=== PATIENT | female | born 1995 ===

== ENCOUNTER 2021-04-27 06:53 | Day surgery (SDC) | payer OTHER | END 2021-04-27 11:05 | disposition home or self-care (01) | LOC: AMB-ENDOS 06:53 | PROVIDERS: ATTEND Surgery | DX: K29.60 Other gastritis without bleeding (principal); K44.9 Diaphragmatic hernia without obstruction or gangrene; E66.01 Morbid (severe) obesity due to excess calories; K76.0 Fatty (change of) liver, not elsewhere classified; E11.9 Type 2 diabetes mellitus without complications; M79.7 Fibromyalgia ==